=== PATIENT | female | born 1955 | race African-American/Black ===

== ENCOUNTER 2018-11-23 11:22 | Emergency (ER) | payer OTHER ==
[~2018-11-23] VITALS: Ht 172.7 cm; Wt 77.1 kg
[~2018-11-23 11:22] MED LIST: ADVAIR 250-501 EACH INH; ALBUTEROL2.5 MG/3 M INH; DILANTIN100 MG ORAL; DILANTIN30 MG ORAL; PYRIDOXINE HCL50 MG ORAL; VENTOLIN HFA18 GM INH; dilantin
--- NOTE | 2018-11-23 11:22 | NUR ---
ED Nurse Note: Pt brought in by ambulance due to seizure activity x 60 sec. EMS states no trauma or injury. Pt is post tictal and AAO x 2 with non labored breathing. Seziure precuations are implemented. Side rails up, bed in lowest locked position and pads on both sides of the bed.
--- NOTE | 2018-11-23 11:43 | NUR ---
HAND-OFF: Report given to Olegario Schwarz RN.
[2018-11-23 12:14] VITALS: BP_SYST 170; BP_SYST 172; BP_DIAS 81; BP_DIAS 82
[2018-11-23 12:20] LABS: BASOPHILS % (AUTO) 1.6 % (0.0-2.0); EOSINOPHILS % (AUTO) 1.9 % (0.0-3.0); HEMOGLOBIN 15.6 G/DL (12.0-16.0); LYMPHOCYTES % (AUTO) 31.3 % (20.0-45.0); MEAN CORPUSCULAR VOLUME 87 FL (80-99); MONOCYTES % (AUTO) 7.7 % (1.0-10.0); NEUTROPHILS % (AUTO) 57.5 % (45.0-75.0); PLATELET COUNT 207 K/UL (150-450); RED BLOOD COUNT 5.85 M/UL (4.20-5.40); RED CELL DISTRIBUTION WIDTH 13.5 % (11.6-14.8); WHITE BLOOD COUNT 5.7 K/UL (4.8-10.8)
--- NOTE | 2018-11-23 12:20 | NUR ---
ED Nurse Note: nurse walked in to room and pt was having seziure. suction done. approx 60 seconds and pt is responding to name at this moment. ERMD notified.
[2018-11-23 12:21] LABS: APPEARANCE,URINE CLEAR; BILIRUBIN, URINE NEGATIVE (NEGATIVE); COLOR,URINE PALE YELLOW; GLUCOSE, URINE (UA) NEGATIVE (NEGATIVE); KETONES,URINE NEGATIVE (NEGATIVE); LEUKOCYTE ESTERASE ,URINE 1+ (NEGATIVE); NITRITE,URINE NEGATIVE (NEGATIVE); PH,URINE 7 (4.5-8.0); PROTEIN,URINE NEGATIVE (NEGATIVE); UROBILINOGEN,URINE NORMAL MG/DL (0.0-1.0)
[2018-11-23 12:29] LABS: ANION GAP 11 mmol/L (5-15); BLOOD UREA NITROGEN 10 mg/dL (7-18); CALCIUM 9.6 MG/DL (8.5-10.1); CARBON DIOXIDE 27 MMOL/L (21-32); CHLORIDE 103 MMOL/L (98-107); CREATININE 0.7 MG/DL (0.55-1.30); POTASSIUM 4.9 MMOL/L (3.5-5.1); SODIUM 141 MMOL/L (136-145)
[2018-11-23] MEDS ORDERED: LORazepam Inj 2mg/ml 1ml IV ONE (12:30)
[2018-11-23 12:34] LABS: ALANINE AMINOTRANSFERASE 35 U/L (12-78); ALBUMIN 3.7 G/DL (3.4-5.0); ALBUMIN/GLOBULIN RATIO 0.7 (1.0-2.7); ALKALINE PHOSPHATASE 141 U/L (46-116); ASPARTATE AMINO TRANSFERASE 40 U/L (15-37); BILIRUBIN,TOTAL 0.3 MG/DL (0.2-1.0); CREATINE KINASE 424 U/L (26-308)
--- NOTE | 2018-11-23 12:40 | Diagnostic Imaging Report ---
EXAM: XR Chest, 1 View CLINICAL HISTORY: SZ TECHNIQUE: Frontal view of the chest. COMPARISON: Chest x-ray 05/07/18 FINDINGS: Lungs: Hypoventilatory lungs. Mild bibasilar lung atelectasis. Mild interstitial prominence, likely chronic. Changes of COPD. Pleural space: Unremarkable. No pneumothorax. Heart: Cardiomegaly. Mediastinum: Unremarkable. Bones/joints: Unremarkable. IMPRESSION: 1. Hypoventilatory lungs. Mild bibasilar lung atelectasis. Mild interstitial prominence, likely chronic. 2. Changes of COPD.
--- NOTE | 2018-11-23 13:10 | NUR ---
ED Nurse Note: pt BP went up to 210/110mmHg. ERMD informed.
[2018-11-23] MEDS ORDERED: Phenytoin 500 MG in NS 110 ML IVPB STA (13:17)
[2018-11-23 14:14] VITALS: BP 177/75
--- NOTE | 2018-11-23 14:53 | Emergency Room Report ---
History of Present Illness General Chief Complaint: Seizure Source: Patient, EMS Present Illness HPI Patient has seizure in [facility] today. EMS was uncertain what antiseizure medication she supposed be taking. The patient claims she supposed be taking Dilantin but is missed doses. She is uncertain when the last seizure she had before today. This was witnessed and tonic-clonic. There is no head trauma that occurred. The patient is had a prior stroke. At this point she denies any increased weakness or numbness. The patient denies any pain of, chest pain, palpitations, nausea, vomiting, diarrhea, dysuria or skin rashes. She also states she's not taking a blood thinner at this time. IN the past, patient seen here with dilantin toxicity. Allergies: Coded Allergies: NO KNOWN DRUG ALLERGIES (Unverified Allergy, Unknown, 05/17/14) Patient History Past Medical History: see triage record Social History: Denies: alcohol use Social History Narrative works at [employer] - disabled Now: No Reviewed Nursing Documentation: PMH: Agreed; PSxH: Agreed Nursing Documentation-PMH Past Medical History: No History, Except For Hx Asthma: Yes Hx Seizures: Yes Review of Systems All Other Systems: negative except mentioned in HPI Physical Exam Vital Signs Date Time Temp Pulse Resp B/P (MAP) Pulse Ox O2 Delivery O2 Flow Rate FiO2 11/23/18 11:11 98.4 83 16 173/85 98 Room Air Sp02 EP Interpretation: reviewed, normal General Appearance: well appearing, no apparent distress, Postictal Head: normocephalic, atraumatic Eyes: bilateral eye normal inspection ENT: moist mucus membranes - Poor dentition no lingu trauma Neck: supple Respiratory: lungs clear, normal breath sounds Cardiovascular #1: regular rate, rhythm Cardiovascular #2: 2+ radial (R) Gastrointestinal: normal inspection, normal bowel sounds, non tender, no mass, non-distended Genitourinary: no CVA tenderness Musculoskeletal: back normal, normal range of motion Neurologic: alert, 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 DDx: breakthrough seizure, non- compliance, electrolyte abnormality, AMI, occult infection amongst others. Evaluation with EKG, CXR and labs. CT not indicated as no evidence of head trauma, h/o seizures and improving mentation. Treatment with IV hydration and ativan. Patient seized before Ativan given. Ativan ordered. Slight agitation after seizure. Transient elevated BP. Patient states she does not take BP medications. Dilantin level low. IV Dilantin ordered and tolerated well. No further seizures. Still somewhat confused. Possible slight R sided weakness (patient states this is due to prior stroke and chronic). Discussed with Dr. Tapia who accepts the patient in transfer. Laboratory Tests Test 11/23/18 12:00 White Blood Count 5.7 K/UL (4.8-10.8) Red Blood Count 5.85 M/UL (4.20-5.40) H Hemoglobin 15.6 G/DL (12.0-16.0) Hematocrit 51.0 % (37.0-47.0) H Mean Corpuscular Volume 87 FL (80-99) Mean Corpuscular Hemoglobin 26.7 PG (27.0-31.0) L Mean Corpuscular Hemoglobin Concent 30.7 G/DL (32.0-36.0) L Red Cell Distribution Width 13.5 % (11.6-14.8) Platelet Count 207 K/UL (150-450) Mean Platelet Volume 6.8 FL (6.5-10.1) Neutrophils (%) (Auto) 57.5 % (45.0-75.0) Lymphocytes (%) (Auto) 31.3 % (20.0-45.0) Monocytes (%) (Auto) 7.7 % (1.0-10.0) Eosinophils (%) (Auto) 1.9 % (0.0-3.0) Basophils (%) (Auto) 1.6 % (0.0-2.0) Urine Color Pale yellow Urine Appearance Clear Urine pH 7 (4.5-8.0) Urine Specific [place] 1.010 (1.005-1.035) Urine Protein Negative (NEGATIVE) Urine Glucose (UA) Negative (NEGATIVE) Urine Ketones Negative (NEGATIVE) Urine Blood 1+ (NEGATIVE) H Urine Nitrite Negative (NEGATIVE) Urine Bilirubin Negative (NEGATIVE) Urine Urobilinogen Normal MG/DL (0.0-1.0) Urine Leukocyte Esterase 1+ (NEGATIVE) H Urine RBC 0-2 /HPF (0 - 2) Urine WBC 0-2 /HPF (0 - 2) Urine Squamous Epithelial Cells Occasional /LPF Urine Bacteria Occasional /HPF (NONE) Sodium Level 141 MMOL/L (136-145) Potassium Level 4.9 MMOL/L (3.5-5.1) Chloride Level 103 MMOL/L (98-107) Carbon Dioxide Level 27 MMOL/L (21-32) Anion Gap 11 mmol/L (5-15) Blood Urea Nitrogen 10 mg/dL (7-18) Creatinine 0.7 MG/DL (0.55-1.30) Estimate Glomerular Filtration Rate > 60 mL/min (>60) Glucose Level 70 MG/DL (74-106) L Calcium Level 9.6 MG/DL (8.5-10.1) Total Bilirubin 0.3 MG/DL (0.2-1.0) Aspartate Amino Transferase (AST) 40 U/L (15-37) H Alanine Aminotransferase (ALT) 35 U/L (12-78) Alkaline Phosphatase 141 U/L (46-116) H Total Creatine Kinase 424 U/L (26-308) H Total Protein 8.9 G/DL (6.4-8.2) H Albumin 3.7 G/DL (3.4-5.0) Globulin 5.2 g/dL Albumin/Globulin Ratio 0.7 (1.0-2.7) L Urine Opiates Screen Negative (NEGATIVE) Urine Barbiturates Screen Negative (NEGATIVE) Phenytoin (Dilantin) Level 5.0 ug/mL (10-20) L Phencyclidine (PCP) Screen Negative (NEGATIVE) Urine Amphetamines Screen Negative (NEGATIVE) Urine Benzodiazepines Screen Negative (NEGATIVE) Urine Cocaine Screen Negative (NEGATIVE) Urine Marijuana (THC) Screen Negative (NEGATIVE) EKG Diagnostic Results Rate: normal Rhythm: NSR ST Segments: no acute changes Rhythm Strip Diag. Results EP Interpretation: yes Rhythm: NSR, no PVC's, no ectopy Chest X-Ray Diagnostic Results Chest X-Ray Diagnostic Results : Chest X-Ray Ordered: Yes # of Views/Limited/Complete: 1 View Indication: Other EP Interpretation: Yes Interpretation: no consolidation, no effusion, no pneumothorax Impression: No acute disease Electronically Signed by: Electronically signed by Geo Whitney MD Last Vital Signs Date Time Temp Pulse Resp B/P (MAP) Pulse Ox O2 Delivery O2 Flow Rate FiO2 11/23/18 18:15 97.0 75 19 133/61 98 Room Air Status: improved Disposition: XFER SHT-TRM HOSP Condition: Serious Referrals: [facility],REFERRING (PCP) Geo Whitney MD Nov 23, 2018 14:53
[2018-11-23 16:14] VITALS: BP 176/100
--- NOTE | 2018-11-23 16:58 | NUR ---
ED Nurse Note: attempted to give report. nurse is not available. will try again.
--- NOTE | 2018-11-23 17:16 | NUR ---
ED Nurse Note: Report given to ANNA Murillo.
[2018-11-23] MEDS ORDERED: UNOBMED (17:40)
--- NOTE | 2018-11-23 17:50 | NUR ---
ED Nurse Note: ambulance arrived and breif report given.
[2018-11-23 18:15] VITALS: BP 133/61
--- NOTE | 2018-11-23 18:17 | NUR ---
ED Nurse Note: pt left department with 2 senior information developer in stable condition.
--- NOTE | 2018-11-25 19:14 | Cardiology Report ---
APPROVED REPORT EKG Measurement Heart [id number] Normal sinus rhythm Normal ECG
== END 2018-11-23 18:15 | disposition short-term general hospital (02) ==
LOC: EDBD 11:22 → EMR 12:16
DX: G40.409 Other generalized epilepsy and epileptic syndromes, not intractable, without status epilepticus (principal); R03.0 Elevated blood-pressure reading, without diagnosis of hypertension; Z91.14 Patient's other noncompliance with medication regimen; J45.909 Unspecified asthma, uncomplicated
CPT/HCPCS: 36415; 71045; 80053; 80185; 80307; 81003; 82550; 85025; 93005; 96361; 96365; 96375; 99284; J1165

== ENCOUNTER 2019-04-26 14:04 | Emergency (ER) | payer OTHER ==
[~2019-04-26] VITALS: Ht 162.6 cm; Wt 81.6 kg
[~2019-04-26 14:04] MED LIST changes: +UNOBMED
--- NOTE | 2019-04-26 14:05 | NUR ---
ED Nurse Note: Pt BIBA from [facility] due to seizure episode 30 mins prior to arrival. Pt loss consciousness but no body movement according to paramedics, lasted about 60 secs, assisted to floor. no trauma. Pt post ictal at arrival. Vial signs stable at this time. Seizure precautions aplied. SAT>95%. Will cont to monitor.
[2019-04-26 14:15] VITALS: BP 150/94
--- NOTE | 2019-04-26 14:20 | NUR ---
ED Nurse Note: Blood drawn and sent to lab.
--- NOTE | 2019-04-26 14:27 | Emergency Room Report ---
History of Present Illness General Chief Complaint: Seizure Source: Patient Present Illness HPI Disclaimer: Please note that this report is being documented using DRAGON technology. This can lead to erroneous entry secondary to incorrect interpretation by the dictating instrument. HPI: 63-year-old female with a history of hypertension, hyperlipidemia, prior CVA without residual deficits and seizure disorder presents for evaluation of loss of consciousness. The patient was [place] [employer] today when she had a witnessed either syncopal episode versus seizure. She was seated when the loss of conscious occurred and was assisted to the floor without head injury. Unclear whether or not there was seizure-like activity described by bystanders as EMS is unable to tell us. They found her awake but confused and somnolent though answering questions appropriately. She states she normally takes Dilantin for her epilepsy however she has missed several doses. She had a similar presentation on 11/23. She currently denies any chest pain, headache, blurred vision, weakness, numbness, tingling or any other change in her health. Denies any changes to medications otherwise. States she had a seizure earlier this year but cannot recall exactly when. States she has seizures every few months. Denies recent fevers, chills, sore throat, cough, vomiting, diarrhea, dysuria. PMH: Seizure disorder, CVA, hypertension, hyperlipidemia PSH: None Allergies: None Social Hx: Denies drug or alcohol use Allergies: Coded Allergies: NO KNOWN DRUG ALLERGIES (Unverified Allergy, Unknown, 05/17/14) Patient History Now: No Nursing Documentation-PMH Past Medical History: No History, Except For Hx Asthma: Yes Hx Seizures: Yes Review of Systems All Other Systems: negative except mentioned in HPI Physical Exam Vital Signs Date Time Temp Pulse Resp B/P (MAP) Pulse Ox O2 Delivery O2 Flow Rate FiO2 04/26/19 13:56 98.1 66 18 154/90 (111) 97 Room Air General: Awake and alert, no acute distress HEENT: NC/AT. EOMI. PERRLA. Visual [place] are full. No nystagmus. Facial expressions are symmetrical. No facial droop. Uvula is midline, tongue is midline Chest Wall: No tenderness, no deformity Cardiovascular: RRR. S1 and S2 normal. No murmur appreciated Resp: Normal work of breathing. No cough, wheezing or crackles appreciated Abdomen: Abdomen is soft, nondistended. Nontender Skin: Intact. No abrasions, laceration or rash over the exposed skin MSK: Normal tone and bulk. Moving all extremities. No obvious deformity. There is no drift in the upper or lower extremities bilaterally. Neuro: Awake and alert. Oriented to self, place, time. Mentating appropriately. Facial expression symmetrical. No dysarthria, no ataxia on [id number] or [id number] testing. Sensation to light touch is intact over the upper and lower extremities. The patient has intact speech with good repetition, comprehension. Fund of knowledge is full. No aphasia, no neglect. NIH: 0 Medical Decision Making Diagnostic Impression: Primary Impression: Breakthrough seizure Additional Impression: UTI (urinary tract infection) ER Course This is a 63-year-old female who presents for evaluation of either a syncopal episode or seizure. Differential includes but is not limited to vasovagal syncope, dehydration, electro light abnormality, breakthrough seizure, medication noncompliance, infectious illness. We will start a broad metabolic and infectious work-up and load the patient with Dilantin. She will receive IV fluids. Her exam is nonfocal and there are no signs of trauma. There is no reported head injury and EMS states the patient was assisted to the ground from a seated position when this syncope versus seizure event occurred. She is otherwise awake, alert, no acute distress but somewhat somnolent. Will monitor in the emergency department after Dilantin load. No indication of head CT at this time as there is no trauma and the patient's exam is nonfocal and has a known seizure history. Laboratory Tests Test 04/26/19 14:13 04/26/19 15:14 White Blood Count 5.8 K/UL (4.8-10.8) Red Blood Count 5.54 M/UL (4.20-5.40) H Hemoglobin 14.8 G/DL (12.0-16.0) Hematocrit 47.6 % (37.0-47.0) H Mean Corpuscular Volume 86 FL (80-99) Mean Corpuscular Hemoglobin 26.7 PG (27.0-31.0) L Mean Corpuscular Hemoglobin Concent 31.0 G/DL (32.0-36.0) L Red Cell Distribution Width 13.4 % (11.6-14.8) Platelet Count 194 K/UL (150-450) Mean Platelet Volume 6.2 FL (6.5-10.1) L Neutrophils (%) (Auto) 40.0 % (45.0-75.0) L Lymphocytes (%) (Auto) 47.3 % (20.0-45.0) H Monocytes (%) (Auto) 9.8 % (1.0-10.0) Eosinophils (%) (Auto) 1.6 % (0.0-3.0) Basophils (%) (Auto) 1.4 % (0.0-2.0) Sodium Level 140 MMOL/L (136-145) Potassium Level 3.9 MMOL/L (3.5-5.1) Chloride Level 108 MMOL/L (98-107) H Carbon Dioxide Level 23 MMOL/L (21-32) Anion Gap 9 mmol/L (5-15) Blood Urea Nitrogen 19 mg/dL (7-18) H Creatinine 0.8 MG/DL (0.55-1.30) Estimate Glomerular Filtration Rate > 60 mL/min (>60) Glucose Level 88 MG/DL (74-106) Calcium Level 9.0 MG/DL (8.5-10.1) Total Bilirubin 0.3 MG/DL (0.2-1.0) Aspartate Amino Transferase (AST) 44 U/L (15-37) H Alanine Aminotransferase (ALT) 58 U/L (12-78) Alkaline Phosphatase 148 U/L (46-116) H Total Creatine Kinase 128 U/L (26-308) Creatine Kinase MB 1.2 NG/ML (0.0-3.6) Creatine Kinase MB Relative Index 0.9 Troponin I 0.000 ng/mL (0.000-0.056) Total Protein 8.0 G/DL (6.4-8.2) Albumin 3.4 G/DL (3.4-5.0) Globulin 4.6 g/dL Albumin/Globulin Ratio 0.7 (1.0-2.7) L Salicylates Level 0.2 ug/mL (2.8-20) L Acetaminophen Level < 2 MCG/ML (10-30) L Phenytoin (Dilantin) Level 14.7 ug/mL (10-20) Serum Alcohol < 3 mg/dL Urine Color Pale yellow Urine Appearance Clear Urine pH 6 (4.5-8.0) Urine Specific [place] 1.015 (1.005-1.035) Urine Protein Negative (NEGATIVE) Urine Glucose (UA) Negative (NEGATIVE) Urine Ketones 1+ (NEGATIVE) H Urine Blood 2+ (NEGATIVE) H Urine Nitrite Negative (NEGATIVE) Urine Bilirubin Negative (NEGATIVE) Urine Urobilinogen Normal MG/DL (0.0-1.0) Urine Leukocyte Esterase 2+ (NEGATIVE) H Urine RBC 5-10 /HPF (0 - 2) H Urine WBC 2-4 /HPF (0 - 2) Urine Squamous Epithelial Cells Few /LPF (NONE/OCC) Urine Bacteria Few /HPF (NONE) Urine HCG, Qualitative Negative (NEGATIVE) Urine Opiates Screen Negative (NEGATIVE) Urine Barbiturates Screen Negative (NEGATIVE) Phencyclidine (PCP) Screen Negative (NEGATIVE) Urine Amphetamines Screen Negative (NEGATIVE) Urine Benzodiazepines Screen Negative (NEGATIVE) Urine Cocaine Screen Negative (NEGATIVE) Urine Marijuana (THC) Screen Negative (NEGATIVE) EKG Diagnostic Results EKG Time: 14:33 Rate: normal Rhythm: NSR ST Segments: no acute changes Other Impression Sinus rhythm, normal axis, normal intervals. No acute ischemic changes. Occasional PVC. Rhythm Strip Diag. Results Rhythm Strip Time: 14:33 EP Interpretation: yes Rate: 60s Rhythm: NSR Reevaluation Time: 16:02 Last Vital Signs Date Time Temp Pulse Resp B/P (MAP) Pulse Ox O2 Delivery O2 Flow Rate FiO2 04/26/19 14:18 69 18 Room Air 04/26/19 14:15 98.1 150/94 97 Status: improved Reevaluation Impression Lab work shows 2+ leukocyte esterase, few bacteria, few WBCs and several RBCs. This is equivocal and unclear whether or not it is an acute urinary tract infection. The patient does note urinary frequency lately but denies dysuria or hematuria. In the light of possible breakthrough seizure with a therapeutic phenytoin level urinary tract infection might explain the patient's breakthrough seizure. Will start on Keflex for 7 days. The patient has a follow-up appointment with her PMD for the however I encouraged her to call PMD tomorrow morning to schedule an appointment for reevaluation sooner. I also offer the patient admission for further work-up of syncope versus seizure and further monitoring however she declined and states that she has home administrative nursing supervisor that is with her in her home and is able to keep an eye on her. We discussed reasons to return to the emergency department as well as need for follow-up and new medications. She understands and agrees with the treatment plan will be discharged home. Disposition: HOME, SELF-CARE Condition: Improved Scripts Cephalexin* (KEFLEX*) 500 Mg Capsule 500 MG ORAL EVERY 12 HOURS for 7 Days, #14 CAP 0 Refills Prov: Sebastian Teague MD 04/26/19 Sebastian Teague MD Apr 26, 2019 14:27
[2019-04-26 14:30] LABS: BASOPHILS % (AUTO) 1.4 % (0.0-2.0); EOSINOPHILS % (AUTO) 1.6 % (0.0-3.0); HEMATOCRIT 47.6 % (37.0-47.0); HEMOGLOBIN 14.8 G/DL (12.0-16.0); LYMPHOCYTES % (AUTO) 47.3 % (20.0-45.0); MEAN CORPUSCULAR VOLUME 86 FL (80-99); MONOCYTES % (AUTO) 9.8 % (1.0-10.0); PLATELET COUNT 194 K/UL (150-450); RED BLOOD COUNT 5.54 M/UL (4.20-5.40); RED CELL DISTRIBUTION WIDTH 13.4 % (11.6-14.8); WHITE BLOOD COUNT 5.8 K/UL (4.8-10.8)
[2019-04-26] MEDS ORDERED: Phenytoin 500 MG in NS 110 ML IV ONE (14:30)
[2019-04-26 14:34] LABS: ANION GAP 9 mmol/L (5-15); BLOOD UREA NITROGEN 19 mg/dL (7-18); CARBON DIOXIDE 23 MMOL/L (21-32); CHLORIDE 108 MMOL/L (98-107); CREATININE 0.8 MG/DL (0.55-1.30); POTASSIUM 3.9 MMOL/L (3.5-5.1); SODIUM 140 MMOL/L (136-145)
[2019-04-26 14:47] LABS: ALANINE AMINOTRANSFERASE 58 U/L (12-78); ALBUMIN 3.4 G/DL (3.4-5.0); ALBUMIN/GLOBULIN RATIO 0.7 (1.0-2.7); ALKALINE PHOSPHATASE 148 U/L (46-116); ASPARTATE AMINO TRANSFERASE 44 U/L (15-37); BILIRUBIN,TOTAL 0.3 MG/DL (0.2-1.0); CKMB 1.2 NG/ML (0.0-3.6); CREATINE KINASE 128 U/L (26-308)
[2019-04-26 15:34] LABS: APPEARANCE,URINE CLEAR; BILIRUBIN, URINE NEGATIVE (NEGATIVE); COLOR,URINE PALE YELLOW; GLUCOSE, URINE (UA) NEGATIVE (NEGATIVE); KETONES,URINE 1+ (NEGATIVE); LEUKOCYTE ESTERASE ,URINE 2+ (NEGATIVE); NITRITE,URINE NEGATIVE (NEGATIVE); PH,URINE 6 (4.5-8.0); PROTEIN,URINE NEGATIVE (NEGATIVE); UROBILINOGEN,URINE NORMAL MG/DL (0.0-1.0)
[2019-04-26 15:57] VITALS: BP 158/113
[2019-04-26] MEDS ORDERED: CEPHALEXIN500 MG ORAL (16:01)
--- NOTE | 2019-04-26 16:13 | NUR ---
ER DISCHARGE NOTE: Patient is cleared to be discharged per ERMD, pt is aox4, on room air, with stable vital signs. pt was given dc and prescription instructions, pt was able to verbalize understanding, pt id band and iv site removed without complications. pt is able to ambulate with steady gait. pt took all belongings.
[2019-04-26 16:15] VITALS: BP 158/113
== END 2019-04-26 16:15 | disposition home or self-care (01) ==
LOC: EDBD 14:04 → EMR 14:39
DX: G40.909 Epilepsy, unspecified, not intractable, without status epilepticus (principal); N39.0 Urinary tract infection, site not specified; J45.909 Unspecified asthma, uncomplicated; I10 Essential (primary) hypertension; E78.5 Hyperlipidemia, unspecified; Z86.73 Personal history of transient ischemic attack (TIA), and cerebral infarction without residual deficits
CPT/HCPCS: 36415; 80053; 80185; 80307; 81003; 81025; 82550; 82553; 84484; 85025; 93005; 96365; 99284; G0480; J1165; 80329